=== PATIENT | male | born 1945 ===

== ENCOUNTER 2025-01-21 13:42 | Outpatient (CLI) | payer MEDICARE, MEDICAID | END 2025-01-21 13:43 | disposition home or self-care (01) | LOC: CSHWCC 13:42 | PROVIDERS: ATTEND Nurse Practitioner Family | DX: L89.893 Pressure ulcer of other site, stage 3 (principal); G40.802 Other epilepsy, not intractable, without status epilepticus; G80.0 Spastic quadriplegic cerebral palsy | CPT/HCPCS: 11042; 99213; G0463 ==

== ENCOUNTER 2025-01-29 10:34 | Outpatient (CLI) | payer MEDICARE, MEDICAID | END 2025-01-29 10:35 | disposition home or self-care (01) | LOC: CSHWCC 10:34 | PROVIDERS: ATTEND Nurse Practitioner Family | DX: L89.893 Pressure ulcer of other site, stage 3 (principal); G40.802 Other epilepsy, not intractable, without status epilepticus; G80.0 Spastic quadriplegic cerebral palsy ==

== ENCOUNTER 2025-02-03 10:01 | Outpatient (CLI) | payer MEDICARE, MEDICAID | END 2025-02-03 10:02 | disposition home or self-care (01) | LOC: CSHWCC 10:01 | PROVIDERS: ATTEND Nurse Practitioner Family | DX: L89.893 Pressure ulcer of other site, stage 3 (principal); G40.802 Other epilepsy, not intractable, without status epilepticus; G80.0 Spastic quadriplegic cerebral palsy | CPT/HCPCS: 11042; 99214; G0463 ==

== ENCOUNTER 2025-02-12 09:41 | Outpatient (CLI) | payer MEDICARE, MEDICAID | END 2025-02-12 09:42 | disposition home or self-care (01) | LOC: CSHWCC 09:41 | PROVIDERS: ATTEND Nurse Practitioner Family | DX: L89.893 Pressure ulcer of other site, stage 3 (principal); G40.802 Other epilepsy, not intractable, without status epilepticus; G80.0 Spastic quadriplegic cerebral palsy | CPT/HCPCS: 11042; 99213; G0463 ==

== ENCOUNTER 2025-02-26 12:31 | Outpatient (CLI) | payer MEDICARE, MEDICAID | END 2025-02-26 12:32 | disposition home or self-care (01) | LOC: CSHWCC 12:31 | PROVIDERS: ATTEND Nurse Practitioner Family | DX: L89.894 Pressure ulcer of other site, stage 4 (principal); L89.813 Pressure ulcer of head, stage 3; G40.802 Other epilepsy, not intractable, without status epilepticus; G80.0 Spastic quadriplegic cerebral palsy | CPT/HCPCS: 99213; G0463 ==